=== PATIENT | female | born 1935 ===

== ENCOUNTER 2021-05-04 15:59 | Inpatient (IN) | payer MEDICARE, OTHER ==
[~2021-05-04] VITALS: Ht 165.1 cm; Wt 47.2 kg
[2021-05-04] MEDS ORDERED: MORPHINE SULFATE 4 MG/ML SYR/VIAL IV ONE (16:15)
[2021-05-04] MEDS ORDERED: ONDANSETRON HCL 4 MG/2 ML VIAL IV ONE (16:15)
[2021-05-04 16:43] LABS: Basophils # (auto) 0.1 10 ^3/uL (0-0.2); Basophils % (auto) 0.6 % (0.0-2.0); Eosinophils # (auto) 0.1 10 ^3/uL (0-0.8); Eosinophils % (auto) 1.6 % (0.0-7.0); Hematocrit 37.6 % (36.0-46.0); Hemoglobin 11.8 g/dL (12.2-16.2); Lymphocytes # (auto) 2.6 10 ^3/uL (0.4-5.4); Lymphocytes % (auto) 29.6 % (10.0-50.0); Mean Corpuscular Hemoglobin 31.6 pg (28.0-32.0); Mean Corpuscular Hgb Conc. 31.4 g/dL (32.0-36.0); Mean Corpuscular Volume 100.4 fL (80.0-100.0); Monocytes # (auto) 0.9 10 ^3/uL (0-1.3); Monocytes % (auto) 10.3 % (0.0-12.0); Neutrophils # (auto) 5.2 10 ^3/uL (1.6-8.6); Neutrophils % (auto) 57.9 % (37.0-80.0); Nucleated Red Blood Cells % 0.2 %; Red Blood Cells 3.74 10^6/uL (4.0-5.20); Red Cell Distribution Width 16.9 % (11.8-14.3)
[2021-05-04 16:53] LABS: INR 0.99 (0.9-1.15); Partial Thromboplastin Time 29.1 sec (23.6-33.0)
[2021-05-04 16:56] LABS: Calcium 7.8 mg/dL (8.5-10.1); Chloride 116 mmol/L (98-107); Lipase 162 U/L (73-393); Sodium 137 mmol/L (136-145)
[2021-05-04 17:01] LABS: Alanine Aminotransferase 25 U/L (13-56); Albumin 2.2 g/dL (3.4-5.0); Alkaline Phosphatase 99 U/L (45-117); Anion Gap 7 (5-15); Aspartate Aminotransferase 26 U/L (15-37); BUN/Creatinine Ratio 17.4; Bilirubin, Total 0.3 mg/dL (0.2-1.0); Blood Urea Nitrogen 35 mg/dL (7-18); Carbon Dioxide 14 mmol/L (21-32); GFR African American 30 mL/min; GFR Non-African American 25 mL/min; Glucose 85 mg/dL (74-106); Total Protein 7.2 g/dL (6.4-8.2)
[2021-05-04 17:12] LABS: Potassium 5.6 mmol/L (3.5-5.1)
[2021-05-04] MEDS ORDERED: InsuLIN REG 1unit/0.01ml Soln (100units/ml) IV ONE (17:30)
[2021-05-04] MEDS ORDERED: DEXTROSE (50%) 50ML SYRG IV ONE ×2 (17:30)
[2021-05-04] MEDS ORDERED: SODIUM CHLORIDE 0.9% 1,000 ML IVB ONE (17:30)
[2021-05-04] MEDS ORDERED: ASPirin 325 MG TAB PO ONE (19:30)
[2021-05-04] MEDS ORDERED: CALCIUM CHL 100MG/ML 1,000 MG in D5W 5% 100 ML IV ONE (20:30)
[2021-05-04] MEDS ORDERED: MORPHINE SULFATE INJECTION 2 MG/ML SYRG IV PRN ×3 (20:30→21:30)
[2021-05-04] MEDS ORDERED: FUROSEMIDE 100 MG/10ML VIAL IV ONE (20:30)
[2021-05-04] MEDS ORDERED: NITROGLYCERIN 0.4 MG SL TAB SL PRN ×3 (20:30→21:30)
[2021-05-04] MEDS ORDERED: CALCIUM CHLOR(10%) 100MG/ML 10ML SYRINGE IV ONE (21:27)
[2021-05-04] MEDS ORDERED: ALPRAZolam 0.5 MG TAB PO PRN (21:30)
[2021-05-04] MEDS ORDERED: ALUM & MAG HYDROX-SIMETH LIQ(MAALOX) 30 ML PO PRN (21:30)
[2021-05-04] MEDS ORDERED: ACETAMINOPHEN 325 MG TAB PO PRN (21:30)
[2021-05-04] MEDS ORDERED: ONDANSETRON HCL 4 MG/2 ML VIAL IV PRN (21:30)
[2021-05-04] MEDS ORDERED: DOCUSATE SOD 100 MG CAP PO PRN (21:30)
[2021-05-04] MEDS ORDERED: ALPRAZolam 0.5 MG TAB PO ONE (21:30)
[2021-05-04] MEDS ORDERED: SODIUM ZIRCONIUM CYCL 10 GM PAK PO ONE (21:30)
[2021-05-04] MEDS ORDERED: METOPROLOL SUCCINATE XL 50 MG TAB PO ONE (21:30)
[2021-05-04] MEDS: SODIUM CHLORIDE 0.9% 1,000 ML IV SCH ×3 (21:30→22:48)
[2021-05-04] MEDS: SODIUM BICARBONATE 650 MG TAB PO SCH (22:30)
[2021-05-04] MEDS: GABAPENTIN 100 MG CAP PO SCH (22:30)
[2021-05-04] MEDS: APIXABAN 2.5 MG TAB PO SCH (22:30)
[2021-05-04 22:55] LABS: INR 1.02 (0.9-1.15)
[2021-05-04] MEDS ORDERED: FUROSEMIDE 20 MG/2 ML VIAL IV ONE (23:30)
[2021-05-05] VITALS (7 sets, daily range): BP systolic 101–119; BP diastolic 54–64
[2021-05-05 00:52] LABS: Alcohol, Urine < 3.0 mg/dL (0-10); Amphetamine Screen, Urine NEGATIVE (NEGATIVE); Barbiturate Scree,Urine NEGATIVE (NEGATIVE); Benzodiazephine Screen, Urine NEGATIVE (NEGATIVE); Cannabinoid Screen, Urine NEGATIVE (NEGATIVE); Cocaine Screen, Urine NEGATIVE (NEGATIVE); Opiate Scree,Urine NEGATIVE (NEGATIVE); Phencyclidine Screen, Urine NEGATIVE (NEGATIVE)
[2021-05-05 01:10] LABS: Urine Bacteria MOD /hpf (None Seen); Urine Blood Negative /uL (Negative); Urine Hyaline Cast FEW /lpf (0 - 2); Urine Mucus FEW (None Seen); Urine WBC 7 /hpf (0 - 5)
[2021-05-05] MEDS ORDERED: cefTRIAXone 1GM/50ML D5W 50 ML IV ONE (04:15)
[2021-05-05] MEDS: SODIUM BICARBONATE 650 MG TAB PO SCH ×3 (05:37→21:33)
[2021-05-05] MEDS: GABAPENTIN 100 MG CAP PO SCH ×3 (05:38→21:33)
[2021-05-05] MEDS ORDERED: METOPROLOL SUCCINATE XL 50 MG TAB PO SCH (10:00)
[2021-05-05] MEDS: CYANOCOBALAMIN 500 MCG TAB PO SCH (10:12)
[2021-05-05] MEDS: APIXABAN 2.5 MG TAB PO SCH ×2 (10:15→21:33)
[2021-05-05] MEDS: CHOLECALCIFEROL (VITD3) 2,000 UNIT CAP/TAB PO SCH (10:15)
[2021-05-05] MEDS: FLORASTOR (S. BOULARDII) 250 MG CAP PO SCH (10:18)
[2021-05-05] MEDS: CITALOPRAM HYDROBR 20 MG TAB PO SCH (10:18)
[2021-05-05] MEDS: CALCIUM W/VIT D (600MG/400IU) TAB PO SCH ×2 (10:31→18:30)
[2021-05-05 12:41] LABS: BUN/Creatinine Ratio 19.1; Calcium 7.9 mg/dL (8.5-10.1)
[2021-05-05 13:06] LABS: Potassium 5.6 mmol/L (3.5-5.1)
[2021-05-05] MEDS ORDERED: DEXTROSE (50%) 50ML SYRG IV ONE ×2 (13:15→15:45)
[2021-05-05] MEDS ORDERED: InsuLIN REG 1unit/0.01ml Soln (100units/ml) IV ONE ×2 (13:15→15:45)
[2021-05-05] MEDS ORDERED: SODIUM BICARBONATE 8.4 % INJ 50ML VIAL IV ONE ×2 (13:15→15:45)
[2021-05-05] MEDS ORDERED: SODIUM ZIRCONIUM CYCL 10 GM PAK PO ONE ×2 (13:45→15:45)
[2021-05-06] VITALS (8 sets, daily range): BP systolic 99–151; BP diastolic 54–90
[2021-05-06] MEDS: SODIUM CHLORIDE 0.9% 1,000 ML IV SCH ×2 (00:10→13:05)
[2021-05-06] MEDS: SODIUM BICARBONATE 650 MG TAB PO SCH (06:48)
[2021-05-06] MEDS: GABAPENTIN 100 MG CAP PO SCH ×3 (06:49→21:24)
[2021-05-06] MEDS: CALCIUM W/VIT D (600MG/400IU) TAB PO SCH ×2 (08:31→18:32)
[2021-05-06] MEDS: cefTRIAXone 1GM/50ML D5W 50 ML IV SCH (08:32)
[2021-05-06] MEDS: FLORASTOR (S. BOULARDII) 250 MG CAP PO SCH (09:02)
[2021-05-06] MEDS: CYANOCOBALAMIN 500 MCG TAB PO SCH (09:02)
[2021-05-06] MEDS: APIXABAN 2.5 MG TAB PO SCH ×2 (09:02→21:24)
[2021-05-06] MEDS: CHOLECALCIFEROL (VITD3) 2,000 UNIT CAP/TAB PO SCH (09:03)
[2021-05-06] MEDS: CITALOPRAM HYDROBR 20 MG TAB PO SCH (09:03)
[2021-05-06 10:31] LABS: BUN/Creatinine Ratio 20.9; Calcium 8.3 mg/dL (8.5-10.1); Potassium 5.5 mmol/L (3.5-5.1)
[2021-05-06] MEDS: SODIUM ZIRCONIUM CYCL 10 GM PAK PO SCH ×2 (13:13→21:24)
[2021-05-06] MEDS: HYDROcodone-ACET 5/325MG TAB PO PRN (21:24)
[2021-05-07 05:00] VITALS: BP 111/60
[2021-05-07] MEDS: GABAPENTIN 100 MG CAP PO SCH ×3 (05:23→21:35)
[2021-05-07] MEDS: SODIUM ZIRCONIUM CYCL 10 GM PAK PO SCH (05:23)
[2021-05-07 06:55] LABS: BUN/Creatinine Ratio 20.4; Calcium 7.4 mg/dL (8.5-10.1); Potassium 4.6 mmol/L (3.5-5.1)
[2021-05-07] MEDS: SODIUM CHLORIDE 0.9% 1,000 ML IV SCH (07:15)
[2021-05-07] MEDS: CALCIUM W/VIT D (600MG/400IU) TAB PO SCH ×2 (08:10→17:37)
[2021-05-07 09:00] VITALS: BP 113/66
[2021-05-07] MEDS: cefTRIAXone 1GM/50ML D5W 50 ML IV SCH (09:35)
[2021-05-07] MEDS: CITALOPRAM HYDROBR 20 MG TAB PO SCH (09:41)
[2021-05-07] MEDS: APIXABAN 2.5 MG TAB PO SCH ×2 (09:41→21:35)
[2021-05-07] MEDS: FLORASTOR (S. BOULARDII) 250 MG CAP PO SCH (09:42)
[2021-05-07] MEDS: CYANOCOBALAMIN 500 MCG TAB PO SCH (09:42)
[2021-05-07] MEDS: CHOLECALCIFEROL (VITD3) 2,000 UNIT CAP/TAB PO SCH (09:42)
[2021-05-07] MEDS ORDERED: SODIUM ZIRCONIUM CYCL 10 GM PAK PO SCH (12:00)
[2021-05-07 13:00] VITALS: BP 118/67
[2021-05-07 17:00] VITALS: BP 112/72
[2021-05-07] MEDS: HYDROcodone-ACET 5/325MG TAB PO PRN (20:35)
[2021-05-07 22:00] VITALS: BP 126/71
[2021-05-08] MEDS: SODIUM CHLORIDE 0.9% 1,000 ML IV SCH (03:44)
[2021-05-08 05:00] VITALS: BP 120/72
[2021-05-08] MEDS: GABAPENTIN 100 MG CAP PO SCH ×2 (06:01→16:26)
[2021-05-08 06:46] LABS: BUN/Creatinine Ratio 21.9; Calcium 7.7 mg/dL (8.5-10.1); Potassium 4.2 mmol/L (3.5-5.1)
[2021-05-08] MEDS: CALCIUM W/VIT D (600MG/400IU) TAB PO SCH ×2 (07:46→17:46)
[2021-05-08 08:15] VITALS: BP 120/72
[2021-05-08] MEDS ORDERED: ADENOSINE 40 MG in GIVE UN-DILUTED 0 ML IV STA (08:54)
[2021-05-08 09:00] VITALS: BP 118/77
[2021-05-08] MEDS: CYANOCOBALAMIN 500 MCG TAB PO SCH (10:00)
[2021-05-08] MEDS: APIXABAN 2.5 MG TAB PO SCH (10:00)
[2021-05-08] MEDS: FLORASTOR (S. BOULARDII) 250 MG CAP PO SCH (10:00)
[2021-05-08] MEDS: CHOLECALCIFEROL (VITD3) 2,000 UNIT CAP/TAB PO SCH (10:00)
[2021-05-08] MEDS: CITALOPRAM HYDROBR 20 MG TAB PO SCH (10:00)
[2021-05-08 13:00] VITALS: BP 106/53
[2021-05-08 17:00] VITALS: BP 113/63
[2021-05-08] MEDS: HYDROcodone-ACET 5/325MG TAB PO PRN (17:12)
[2021-05-08 17:24] VITALS: BP 106/53
== END 2021-05-08 19:25 | disposition home or self-care (01) | DRG 205 ==
LOC: ER 15:59 → EDBD 15:59 → TELE 20:27 → TELE-WESTW 05-05 08:03
PROVIDERS: ADMIT Hospitalist; ATTEND Internal Medicine
DX: M94.0 Chondrocostal junction syndrome [Tietze] (principal); N17.0 Acute kidney failure with tubular necrosis; I13.0 Hypertensive heart and chronic kidney disease with heart failure and stage 1 through stage 4 chronic kidney disease, or unspecified chronic kidney disease; N39.0 Urinary tract infection, site not specified; R64 Cachexia; Z68.1 Body mass index [BMI] 19.9 or less, adult; D68.59 Other primary thrombophilia; N18.4 Chronic kidney disease, stage 4 (severe); E87.5 Hyperkalemia; I48.0 Paroxysmal atrial fibrillation; I49.5 Sick sinus syndrome; M81.0 Age-related osteoporosis without current pathological fracture; K29.70 Gastritis, unspecified, without bleeding; K21.9 Gastro-esophageal reflux disease without esophagitis; F41.9 Anxiety disorder, unspecified; F32.9 Major depressive disorder, single episode, unspecified; D53.9 Nutritional anemia, unspecified; I25.9 Chronic ischemic heart disease, unspecified; Z20.822 Contact with and (suspected) exposure to COVID-19; G89.29 Other chronic pain; Z91.013 Allergy to seafood; Z95.0 Presence of cardiac pacemaker; I50.9 Heart failure, unspecified
CPT/HCPCS: 36415; 71045; 80048; 80053; 80307; 81001; 82962; 83036; 83690; 84132; 84484; 85025; 85379; 85610; 85730; 87040; 87086; 87426; 93005; 93306; 96361; 96365; 96367; 96375; 97116; 97163; 97530; G0378; J0153; J0696; J1815; J2405; J7060